=== PATIENT | male | born 1940 | race Caucasian/White ===

== ENCOUNTER 2018-04-16 12:57 | Emergency (ER) | payer MEDICARE, OTHER ==
[~2018-04-16] VITALS: Ht 177.8 cm; Wt 95.4 kg
[2018-04-16] MEDS ORDERED: naloxone 0.4 mg/ml inj ONE (14:00)
[2018-04-16] MEDS ORDERED: etomidate 2mg/ml inj. ONE (14:00)
[2018-04-16] MEDS ORDERED: epiNEPHrine 0.1mg/ml 10ml syringe ONE (14:00)
== END 2018-04-16 15:13 | disposition expired ==
LOC: ER 12:58
DX: I46.9 Cardiac arrest, cause unspecified (principal)
CPT/HCPCS: 31500; 80047; 92950; 99285; J0171; J2310; J3490